=== PATIENT | female | born 1970 | race American Indian/Alaskan Native ===

== ENCOUNTER 2016-08-06 19:53 | Emergency (ER) | payer MEDICAID ==
[2016-08-06 20:07] VITALS: BP 188/99
--- NOTE | 2016-08-06 20:23 | Emergency Department Report ---
Chief Complaint: Back Pain/Injury Stated Complaint: R SHOULDER PAIN Time Seen by Provider: 08/06/16 20:18 - HPI History of Present Illness: PT states 2 days ago she was moving stuff for her sister and her R shoulder popped. PT states her shoulder has been hurting since. PT states she took Naprosyn for this but did not get any relief. - ROS Review of Systems: -back pain - neck pain - Exam Vital Signs: Vital Signs 08/06/16 20:01 Temperature 99.0 F Pulse Rate 83 Respiratory 18 Rate Blood Pressure 188/99 O2 Sat by Pulse 100 Oximetry Physical Exam: pt looks well, non toxic R trapezes ttp. R ant shoulder ttp MSE screening note: Focused history and physical exam performed. Due to findings the following was ordered: edgard arriola ED Disposition for MSE Condition: Stable
[2016-08-06] MEDS ORDERED: FLEXERIL PO ONE (20:24)
[2016-08-06] MEDS ORDERED: NORCO 5/325 PO ONE (20:24)
--- NOTE | 2016-08-06 22:47 | Emergency Department Report ---
ED Back Pain/Injury HPI - General Chief Complaint: Back Pain/Injury Stated Complaint: R SHOULDER PAIN Time Seen by Provider: 08/06/16 20:18 Source: patient, family Limitations: No Limitations - History of Present Illness Initial Comments: PT states 2 days ago she was moving stuff for her sister and her R shoulder popped. PT states her shoulder has been hurting since. PT states she took Naprosyn for this but did not get any relief. Denies any numbness or tingling to extremities. MD Complaint: other (right shoulder pain) Onset/Timin -: days(s) Similar Symptoms Previously: No Place: home Radiation: none Severity: severe Severity scale (0 -10): 9 Quality: aching Consistency: constant Improves With: immobilization Worsens With: movement Context: while lifting, turning/twisting Associated Symptoms: denies: confusion, weakness, chest pain, numbness, difficulty walking, cough, difficulty urinating, diaphoresis, incontinence, fever/chills, constipation, headaches, abdominal pain, loss of appetite, malaise , nausea/vomiting, rash, seizure, shortness of breath, syncope Treatments Prior to Arrival: NSAIDS - Related Data Previous Rx's Medication Instructions Recorded Last Taken Type traMADol [Ultram] 50 mg PO Q6HR PRN #20 tablet 08/07/16 Unknown Rx Allergies Allergy/AdvReac Type Severity Reaction Status Date / Time aspirin Allergy Anaphylaxis Verified 08/06/16 20:07 ED Review of Systems ROS: Stated complaint: R SHOULDER PAIN Other details as noted in HPI Comment: All other systems reviewed and negative Constitutional: denies: chills, fever Eyes: denies: eye pain, vision change Respiratory: no symptoms reported Cardiovascular: denies: chest pain, palpitations, edema, syncope Gastrointestinal: denies: abdominal pain, nausea, vomiting Musculoskeletal: arthralgia. denies: back pain, joint swelling Skin: denies: rash Neurological: denies: headache, weakness, numbness, paresthesias, confusion, abnormal gait, vertigo ED Past Medical Hx - Past Medical History Previous Medical History?: Yes Hx Hypertension: Yes Hx HIV: Yes Additional medical history: chronic back pain - Surgical History Past Surgical History?: Yes Additional Surgical History: hysterectomy, c-sec - Family History Family history: hypertension - Social History Smoking Status: Never Smoker Substance Use Type: None - Medications Home Medications: Home Medications Medication Instructions Recorded Confirmed Last Taken Type traMADol [Ultram] 50 mg PO Q6HR PRN #20 tablet 08/07/16 Unknown Rx ED Physical Exam - General Limitations: No Limitations General appearance: alert, in no apparent distress - Head Head exam: Present: atraumatic, normocephalic, normal inspection - Eye Eye exam: Present: normal appearance, PERRL, EOMI Pupils: Present: normal accommodation - ENT ENT exam: Present: normal exam, normal orophraynx, mucous membranes moist, TM's normal bilaterally, normal external ear exam - Neck Neck exam: Present: normal inspection, tenderness, full ROM. Absent: meningismus, lymphadenopathy - Expanded Neck Exam Expanded Neck exam: Absent: tenderness, midline deformity, anterior neck swelling, tracheal deviation - Respiratory Respiratory exam: Present: normal lung sounds bilaterally. Absent: respiratory distress, chest wall tenderness - Cardiovascular Cardiovascular Exam: Present: regular rate, normal rhythm, normal heart sounds - GI/Abdominal GI/Abdominal exam: Present: soft, normal bowel sounds. Absent: distended, tenderness, guarding, rebound, rigid - Extremities Exam Extremities exam: Present: normal inspection, normal capillary refill. Absent: full ROM (noted range of motion to right shoulder due to pain), tenderness, joint swelling, calf tenderness - Expanded Upper Extremity Exam Left General: Present: normal inspection. Absent: laceration, abrasion Shoulder Exam: Present: normal inspection, full ROM (Limited range of motion due to pain). Absent: tenderness, swelling, abrasion, laceration, ecchymosis, deformity, crepidus, dislocation, erythema, tenderness over AC joint Upper Arm exam: Present: normal inspection, full ROM. Absent: tenderness, swelling, abrasion, laceration, ecchymosis, deformity, crepidus, dislocation, erythema Elbow exam: Present: normal inspection, full ROM. Absent: tenderness, swelling , abrasion, laceration, ecchymosis, deformity, crepidus, dislocation, erythema, effusion, pain w/ pronation/supination, tenderness over radial head Forearm Wrist exam: Present: normal inspection, full ROM. Absent: tenderness, swelling, abrasion, laceration, ecchymosis, deformity, crepidus, dislocation, erythema, tenderness over anatomical snuff box, pain with axial thumb loading Hand Wrist exam: Present: normal inspection, full ROM. Absent: tenderness, swelling, abrasion, laceration, ecchymosis, deformity, crepidus, dislocation, erythema, amputation, nail avulsion, subungual hematoma Neuro motor exam: Present: wrist extension intact, thumb opposition intact, thumb IP flexion intact, thumb adduction intact, fingers 2-5 abduction intact Neurosensory exam: Present: 2-point discrimination, radial nerve intact, ulnar nerve intact, median nerve intact Vascular: Present: normal capillary refill, radial pulse, brachial pulse, ulnar pulse. Absent: vascular compromise, Pallo, pulse deficit radial art, pulse deficit ulnar art, pulse deficit brachial art - Back Exam Back exam: Present: normal inspection, full ROM - Neurological Exam Neurological exam: Present: alert, oriented X3, normal gait, reflexes normal. Absent: motor sensory deficit - Psychiatric Psychiatric exam: Present: normal affect, normal mood - Skin Skin exam: Present: warm, dry, intact, normal color. Absent: rash ED Course Vital Signs 08/06/16 20:01 Temperature 99.0 F Pulse Rate 83 Respiratory 18 Rate Blood Pressure 188/99 O2 Sat by Pulse 100 Oximetry - Reevaluation(s) Reevaluation #1: 08/07/16 00:00 See procedure note for splinting detail. Patient received Flexeril, Marbury and Benadryl in emergency room. - Orthopedic Splinting/Casting Injury #1 Side: right Upper Extremity Injury Location: shoulder Upper Extremity Immobilizer: sling/shoulder immobilize ED Medical Decision Making - Radiology Data Radiology results: report reviewed X-ray of right shoulder revealed no fracture or dislocation. No soft tissue swelling noted. - Medical Decision Making ED course: She received Marbury 5/325 one tablet and Flexeril 10 mg by mouth in emergency room. She complained of itching after Marbury so she was given Benadryl 50 mg IM and emergency room. Discussed with patient that her x-ray was negative for any bone abnormality but she will need to follow-up with orthopedic doctor for possible MRI because she could have rotator cuff injury. See procedure note for details on splinting. Patient is stable discharged home with her family and to follow up with orthopedic doctor as instructed. She discharged home on Ultram. Critical care attestation.: If time is entered above; I have spent that time in minutes in the direct care of this critically ill patient, excluding procedure time. ED Disposition Clinical Impression: Arthralgia of shoulder region, right Right shoulder injury Qualifiers: Encounter type: initial encounter Qualified Code(s): S49.91XA - Unspecified injury of right shoulder and upper arm, initial encounter Disposition: DISCHARGED TO HOME OR SELFCARE Is pt being admited?: No Does the pt Need Aspirin: No Condition: Stable Instructions: Arthralgia (ED) Additional Instructions: Please use shoulder sling for immobilization until seen by orthopedic doctor. yOU can take Ultram to manage pain. Prescriptions: traMADol [Ultram] 50 mg PO Q6HR PRN #20 tablet PRN Reason: Pain Referrals: XENA RODRIGUEZ MD [Staff Physician] - 08/07/16 Forms: Work/School Release Form(ED)
[2016-08-06] MEDS ORDERED: NORCO 5/325 ONE (22:52)
[2016-08-06] MEDS ORDERED: FLEXERIL ONE (22:52)
--- NOTE | 2016-08-06 22:58 | XRay Report ---
FINAL REPORT PROCEDURE: XR SHOULDER 2 RT TECHNIQUE: Right shoulder, three views HISTORY: injury and pain COMPARISON: No prior studies are available for comparison. FINDINGS: No acute fracture or dislocation is seen. Glenohumeral and acromioclavicular joints are intact. No focal osseous lesions are seen. IMPRESSION: No acute fracture or joint dislocation is seen
[2016-08-06] MEDS ORDERED: BENADRYL IM ONE (23:48)
== END 2016-08-07 00:18 | disposition home or self-care (01) ==
LOC: ED 19:53
DX: S49.91XA Unspecified injury of right shoulder and upper arm, initial encounter (principal); I10 Essential (primary) hypertension; Z21 Asymptomatic human immunodeficiency virus [HIV] infection status; X58.XXXA Exposure to other specified factors, initial encounter; Y93.9 Activity, unspecified; Y92.9 Unspecified place or not applicable; Y99.9 Unspecified external cause status
CPT/HCPCS: 73030; 96372; 99284; J1200

== ENCOUNTER 2016-12-27 00:14 | Emergency (ER) | payer MEDICAID ==
[2016-12-27 01:49] LABS: Bilirubin,Urine NEG (Negative); Blood,Urine SM (Negative); Ketones,Urine NEG (Negative); Leukocyte Esterase,Urine NEG (Negative); Mucus,Urine 1+ /HPF; Nitrite,Urine NEG (Negative); Urobilinogen,Urine < 2.0 mg/dL (<2.0)
[2016-12-27 02:04] LABS: Basophils % (Auto) 0.7 % (0.0-1.8); Eosinophils % (Auto) 0.6 % (0.0-4.3); Hematocrit 40.8 % (30.3-42.9); Hemoglobin 13.2 gm/dl (10.1-14.3); Mean Corpuscular HGB Conc 32 % (30-34); Mean Corpuscular Hemoglobin 27 pg (28-32); Mean Corpuscular Volume 83 fl (79-97); Platelet Count 280 K/mm3 (140-440); Red Cell Distribution Width 13.6 % (13.2-15.2); White Blood Count 4.8 K/mm3 (4.5-11.0)
[2016-12-27 02:21] LABS: Alanine Aminotransferase 10 units/L (7-56); Albumin/Globulin Ratio 0.9 %; Alkaline Phosphatase 81 units/L (35-129); Anion Gap 19 mmol/L; BUN/Creatinine Ratio 13.63; Blood Urea Nitrogen 15 mg/dL (7-17); Calcium 8.7 mg/dL (8.4-10.2); Carbon Dioxide 22 mmol/L (22-30); Chloride 101.6 mmol/L (98-107); Glucose 95 mg/dL (65-100); Lipase 25 units/L (13-60); Potassium 3.9 mmol/L (3.6-5.0); Sodium 139 mmol/L (137-145); Total Protein 8.5 g/dL (6.3-8.2)
[2016-12-27] MEDS ORDERED: NORCO 5/325 PO ONE (03:18)
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
[2016-12-27 05:18] VITALS: BP 153/92
== END 2016-12-27 05:00 | disposition home or self-care (01) ==
LOC: ED 00:14
DX: M54.5 Low back pain (principal); R10.30 Lower abdominal pain, unspecified; I10 Essential (primary) hypertension; G89.29 Other chronic pain; Z88.6 Allergy status to analgesic agent; Y04.0XXA Assault by unarmed brawl or fight, initial encounter; Y93.89 Activity, other specified; Y99.8 Other external cause status; Y92.89 Other specified places as the place of occurrence of the external cause
CPT/HCPCS: 36415; 74176; 80053; 81001; 83690; 85025

== ENCOUNTER 2017-06-25 20:28 | Emergency (ER) | payer MEDICAID ==
[2017-06-25 21:23] VITALS: BP 160/104
== END 2017-06-26 10:36 | disposition left against medical advice (07) ==
LOC: ED 20:28
DX: R05 Cough (principal); Z53.21 Procedure and treatment not carried out due to patient leaving prior to being seen by health care provider